=== PATIENT | female | born 1995 | race Caucasian/White ===

== ENCOUNTER 2016-05-15 08:30 | Outpatient (CLI) | payer MEDICAID | END 2016-05-15 10:25 | disposition home or self-care (01) | LOC: 2LDRP 08:30 → BC 08:30 | DX: O99.89 Other specified diseases and conditions complicating pregnancy, childbirth and the puerperium (principal); R10.9 Unspecified abdominal pain; Z3A.28 28 weeks gestation of pregnancy ==